=== PATIENT | female | born 1985 | race Caucasian/White ===

== ENCOUNTER 2021-12-26 08:42 | Emergency (ER) | payer OTHER ==
[~2021-12-26] VITALS: Ht 170.2 cm; Wt 80.7 kg
[2021-12-26 08:45] VITALS: BP 121/76
[2021-12-26] MEDS ORDERED: METH4TAB2 PO (09:11)
[2021-12-26] MEDS ORDERED: CYCL10TA19 PO (09:11)
--- NOTE | 2021-12-26 09:11 | PHYS DOC ---
Past History Past Surgical History: , Hysterectomy Alcohol Use: Occasionally Adult General Chief Complaint Chief Complaint: BACK PAIN - NO INJURY HPI HPI Patient is a 36 year old female who presents with complaint of left lower back and lower leg pain. The patient states that she has history of lower lumbar bulging disc which was diagnosed at [facility] over a year ago. Patient states that she has had recurrent episodes of sciatic nerve pain. She states that her current symptoms feel similar. States she tried taking ibuprofen at home but notes no significant relief. States that the pain worsens in a seated position. Denies loss of bowel or bladder control, saddle anesthesia, or foot drop. Does note tingling pain that goes down all the way to her toes. Review of Systems Review of Systems Constitutional: Denies fever or chills [] Eyes: Denies change in visual acuity, redness, or eye pain [] HENT: Denies nasal congestion or sore throat [] Respiratory: Denies cough or shortness of breath [] Cardiovascular: Denies chest pain or edema [] GI: Denies abdominal pain, nausea, vomiting, bloody stools or diarrhea [] : Denies dysuria or hematuria [] Musculoskeletal: Low back pain, left lower extremity pain, denies swelling [] Integument: Denies rash or skin lesions [] Neurologic: Tingling, denies focal weakness [] All other systems were reviewed and found to be within normal limits, except as documented in this note. Allergies Allergies Allergies Coded Allergies Type Severity Reaction Last Updated Verified No Known Drug Allergies 12/26/21 No Physical Exam Physical Exam Constitutional: Alert, afebrile, appears in moderate discomfort. [] HENT: Normocephalic, atraumatic, bilateral external ears normal, oropharynx moist, no oral exudates, nose normal. [] Eyes: PERRLA, EOMI, conjunctiva normal, no discharge. [] Neck: Normal range of motion, no tenderness, supple, no stridor. [] Cardiovascular:Heart rate regular rhythm, no murmur [] Lungs & Thorax: Bilateral breath sounds clear to auscultation [] Abdomen: Bowel sounds normal, soft, no tenderness, no masses, no pulsatile masses. [] Skin: Warm, dry, no erythema, no rash. [] Back: Left lower lumbar paraspinous muscle tenderness to palpation, positive left straight leg test, no midline tenderness. [] Extremities: No tenderness, no cyanosis, no clubbing, ROM intact, no edema. [] Neurologic: Alert and oriented X 3, normal motor function, normal sensory function, no focal deficits noted. [] Current Patient Data Vital Signs Vital Signs Date Time Temp Pulse Resp B/P (MAP) Pulse Ox O2 Delivery O2 Flow Rate FiO2 12/26/21 08:45 90 121/76 (91) 96 12/26/21 08:45 18 Room Air Lab Results Not performed EKG EKG Not performed [] Radiology/Procedures Radiology/Procedures Not performed [] Heart Score C/O Chest Pain: No Risk Factors: Risk Factors: DM, Current or recent (<one month) smoker, HTN, HLP, family history of CAD, obesity. Risk Scores: Risk Factors: DM, Current or recent (<one month) smoker, HTN, HLP, family history of CAD, obesity. Course & Med Decision Making Course & Med Decision Making Pertinent Labs and Imaging studies reviewed. (See chart for details) Patient is ambulatory in the emergency department with an unfaltering gait. P atient treated with IM morphine and Solu-Medrol. Prescribed Flexeril and Medrol dose pack for outpatient treatment. Provided with contact information for Dr. Huff of neurosurgery to schedule next available outpatient appointment for further evaluation of patient's low back symptoms. Recommend follow-up with primary care provider in the next 3 to 5 days for reevaluation and recommend return to the emergency department for any worsening symptoms. Patient voices understanding and in agreement with treatment plan. [] Dragon Disclaimer Dragon Disclaimer This electronic medical record was generated, in whole or in part, using a voice recognition dictation system. Departure Departure: Impression: Primary Impression: Sciatica of left side Disposition: HOME / SELF CARE / HOMELESS Condition: STABLE Referrals: Mauri Huff PCP,NO (PCP) Patient Instructions: Sciatica Additional Instructions: Call the office of Dr. Huff tomorrow to set up next available appointment. Follow-up with your primary doctor in the next 3 to 5 days for reevaluation if symptoms or not improving and return to the emergency department for any worsening symptoms. Scripts Cyclobenzaprine Hcl (CYCLOBENZAPRINE HCL) 10 Mg Tablet 1 TAB PO TID PRN for MUSCLE PAIN, #30 TAB Prov: LUIS ALBERTO OSORIO MD 12/26/21 Methylprednisolone (MEDROL) 4 Mg Tab.ds.pk 1 PKG PO UD, #1 PKG Prov: LUIS ALBERTO OSORIO MD 12/26/21 LUIS ALBERTO OSORIO MD December 26, 2021 09:11
[2021-12-26] MEDS ORDERED: MORPHINE SULFATE 10 MG/ML SYRINGE. IM ONE (09:15)
[2021-12-26] MEDS ORDERED: methylPREDNISolone SOD SUCC PF 125 MG/2 ML VIAL. IM ONE (09:15)
== END 2021-12-26 09:22 | disposition home or self-care (01) ==
LOC: ER 08:42
DX: M54.42 Lumbago with sciatica, left side (principal); Z98.890 Other specified postprocedural states; Z90.710 Acquired absence of both cervix and uterus
CPT/HCPCS: 96372; 99284; J2270; J2930